=== PATIENT | female | born 1960 | race African-American/Black ===

== ENCOUNTER 2018-09-19 06:05 | Inpatient (IN) ==
[2018-09-19] MEDS ORDERED: Labetalol HCl Inj 100 MG/20 ML Vial IV.PUSH ONE (06:40)
[2018-09-19] MEDS ORDERED: Morphine Inj 4 MG/ML Vial IV.PUSH ONE (06:40)
--- NOTE | 2018-09-19 06:40 | ED ---
HPI General Chief complaint: Extremity Problem,Nontraumatic Stated complaint: Leg pain Time Seen by Provider: 09/19/18 06:17 Source: patient Mode of arrival: ambulatory Limitations: no limitations History of Present Illness HPI narrative: The patient is a 58 year old female who presents to the [facility] emergency department with a history of pain in her back that radiates down her legs that is recently been getting worse. She reports that she went to a chiropractor on Wednesday and had a manipulation done. She reports that the pain that radiates down into the right leg improved, however the pain in the left leg has gradually worsened. She reports that the pain radiates from the left buttock area down to the left foot. She reports that it seems to be in the back of her leg. She denies having any dysuria, urinary frequency, or urinary urgency, however she reports that she has had difficulty getting to the bathroom fast enough and has been incontinent. She reports that she will has also noticed weakness in the left foot with dorsiflexing. The patient arrives out in triage with a blood pressure of 270/136. The patient reports that she does have a history of high blood pressure, however she has not been on any medication for for the last 2 years. She denies having any headache or neck pain. She denies having any chest pain, chest pressure, or shortness of breath. On review of systems otherwise, the patient denies having any known recent fevers, cough, congestion, neck pain, abdominal pain, vomiting, diarrhea , incontinence of bowel, numbness or tingling to her extremities or saddle region, unexplained weight loss, history of IV drug use, weakness in her arms or right lower extremity. The patient denies having any recent problems with facial droop, difficulty with word finding ability, vision changes, or vertigo. Related Data Home Medications Medication Instructions Recorded Confirmed No Known Home Medications 09/19/18 09/19/18 Allergies Allergy/AdvReac Type Severity Reaction Status Date / Time No Known Allergies Allergy Verified 09/19/18 06:07 Review of Systems ROS: all other systems reviewed are negative [facility] Medical History Medical History HTN (hypertension) (Acute) Surgical History Surgical History No history of previous surgery (Acute) Social History Social History Substance History: No History of Abuse Smoking Status: Never smoker How Often Do You Have a Drink Containing Alcohol: Monthly or less Recent Travel in [facility] within the Last 8 Weeks: No Recent Out of Country Travel within the Last 8 Weeks: No Immunization History Tetanus Immunization: Unsure Exam Const General: cooperative, no acute distress and well developed Nutritional Appearance: well nourished Orientation: alert, awake and oriented x3 HENMT Head: normocephalic and atraumatic Nose: no nasal discharge and no epistaxis Mouth: moist mucous membranes Throat: posterior oropharynx normal and uvula midline Eyes Sclera: normal sclerae Pupils: PERRL Neck Neck: no meningeal signs, trachea midline and no JVD Resp Effort & Inspection: no use of accessory muscles Auscultation: clear to auscultation bilaterally Cardio Rate: regular rate Rhythm: regular rhythm Heart Sounds: no murmurs GI Inspection: non-distended Palpation: soft, no hepatosplenomegaly, no guarding, not rigid and nontender Auscultation: normal bowel sounds Back/Spine/Pelvis Back: no CVA tenderness Cervical Spine: No cervical spinal tenderness Thoracic/Lumbar Spine: No thoracic spinal tenderness, No lumbar spinal tenderness and No straight leg raise positive Pelvis: no buttock tenderness and no sciatic notch tenderness Skin General: dry skin (warm) Neuro General: alert, awake and oriented x3 Cranial Nerves: CN's II-XI intact bilaterally Speech: speech normal Motor: no movement abnormalities noted and strength abnormal (Weakness with dorsiflexion of the left foot is noted. Otherwise 5/5 strength in all 4 extremities.) Sensory Exam: no sensory deficits noted Extrem General: normal to inspection, no calf tenderness, no clubbing, no cyanosis and no edema Psych Mood: congruent mood Affect: normal affect Judgment: judgment good Course Initial Documented Vital Signs Temperature 98.5 F 09/19/18 06:07 Pulse Rate 90 09/19/18 06:07 Respiratory Rate 16 09/19/18 06:07 Blood Pressure 276/138 H 09/19/18 06:07 Pulse Oximetry 97 09/19/18 06:07 Last Documented Vital Signs Temperature 97.8 F 09/19/18 10:00 Pulse Rate 62 11/19/18 10:00 Respiratory Rate 20 09/19/18 10:00 Blood Pressure 180/120 H 09/19/18 10:00 Pulse Oximetry 96 09/19/18 10:00 Sign Out Sign Out Data: Patient Sign Out occurred on 09/19/18 at 07:41. Patient's care was discussed, and care was transferred from Vicky Roger MD to Calvin العرايق MD. Sign Out Comment: The patient's case was checked out to the oncoming emergency physician to disposition the patient based on the conclusion of her workup. The patient is also pending reevaluation of her blood pressure after labetalol administration and pain control for her back pain including morphine and Zofran. Last updated by Vicky Roger MD at 09/19/18 06:57 Post-Handoff Eval: Patient was initially evaluated by the previous provider and signed shift pending labs, imaging studies, reassessment, and disposition. See her note for further details. This is a 4-year-old female with chronic low back pain who presents for evaluation of worsening lower back pain with left lower extremity weakness and left foot drop that started yesterday. The patient was seen by chiropractor on Wednesday of last week and had an adjustment and reports that the pain on her right side improved, however the pain on her left lower extremity has worsened. On exam the patient has mild weakness to the left lower extremity in flexion and extension at the left hip and knee when compared to the right as well as foot drop with limited dorsiflexion. Sensation is intact. CT lumbar spine: CONCLUSION:1. No acute abnormality.2. Degenerative changes particularly at L3- L4 and L4-L5 with central canal stenosis and neural foraminal narrowing as detailed above. MR L spine: CONCLUSION: 1. Degenerative changes as detailed above. Right L4 and left L5 neural foraminal impingement as detailed above. Patient was made aware of the imaging findings. I told her that she may need surgery given her symptoms and findings. She prefers conservative management over surgery. Her blood pressure remains significantly elevated despite receiving 10 mg of IV labetalol. She will be given a dose of IV hydralazine. 9:25 AM: Case discussed with on-call neurosurgeon Dr. Dallas who was made aware that the patient will likely be admitted for uncontrolled blood pressure as well as pain control and left lower extremity weakness with MRI findings as above. He will see the patient in consultation. CT aorta: No acute abnormalities. Moderate atherosclerosis throughout. Patient was made aware of CTA findings. She was provided 10 mg of IV Decadron by me as well as hydralazine. Her blood pressure remains elevated. She will be admitted for further treatment and evaluation of uncontrolled hypertension, uncontrolled back pain, left foot drop with lumbar disc herniations and degenerative changes. Case discussed with hospitalist Dr. Pugh who will admit the patient to her service. Medical Decision Making MDM Narrative Medical decision making narrative: During the course of the patient's emergency department visit, the patient's history, examination, and differential diagnosis were reviewed with the patient. The patient was placed on a alarm security or surveillance monitor with oximetry and frequent blood pressure monitoring. The patient had IV access obtained and blood work sent for analysis. A diagnostic evaluation was started regarding the patient's low back pain that is radiating down into the left leg. The patient was initially provided morphine 4 mg IV for pain, Zofran 4 mg IV for nausea, labetalol 10 mg IV for hypertension. The patient's case was checked out to the oncoming emergency physician at the conclusion of my shift. The patient is pending laboratory studies and imaging studies as well as reevaluation. Medical Screen Exam Complete: Yes Emergency Medical Condition: Yes Lab Data Result diagrams: 09/19/18 06:50 09/19/18 06:50 Lab Results 09/19/18 09/19/18 09/19/18 Range/Units 06:50 06:50 06:50 WBC 4.6 (4.0-11.0) th/mm3 RBC 4.90 (4.00-5.30) mil/mm3 Hgb 14.5 (11.6-15.3) gm/dL Hct 43.3 (35.0-46.0) % MCV 88.2 (80.0-100.0) fL MCH 29.5 (27.0-34.0) pg MCHC 33.5 (32.0-36.0) % RDW 14.0 (11.6-17.2) % Plt Count 210 (150-450) th/mm3 MPV 10.6 (7.0-11.0) fL Neut % (Auto) 50.9 (16.0-70.0) % Lymph % (Auto) 38.9 (9.0-44.0) % [place] % (Auto) 7.8 (0.0-8.0) % Eos % (Auto) 1.6 (0.0-4.0) % Baso % (Auto) 0.8 (0.0-2.0) % Neut # (Auto) 2.4 (1.8-7.7) th/mm3 Lymph # (Auto) 1.8 (1.0-4.8) th/mm3 [place] # (Auto) 0.4 (0.0-0.9) th/mm3 Eos # (Auto) 0.1 (0.0-0.4) th/mm3 Baso # (Auto) 0.0 (0.0-0.2) th/mm3 WBC Differential . Differential Comment Auto diff final PT 10.2 (9.8-11.6) sec INR 1.0 Ratio APTT 27.0 (23.4-31.7) sec Sodium 141 (136-145) meq/L Potassium 3.2 L (3.5-5.1) meq/L Chloride 102 (98-107) meq/L Carbon Dioxide 31.1 (21.0-32.0) meq/L Anion Gap 8 (5-15) meq/L BUN 30 H (7-18) mg/dL Creatinine 1.33 H (0.50-1.00) mg/dL Estimated GFR 49 L (>89) mL/min Random Glucose 116 H (74-106) mg/dL Calcium 9.6 (8.5-10.1) mg/dL Total Bilirubin 0.3 (0.2-1.0) mg/dL AST 24 (15-37) U/L ALT 20 (10-53) U/L Alkaline Phosphatase 98 (45-117) U/L Total Creatine Kinase 207 H (26-192) U/L CK-MB (CK-2) 1.1 (0.5-3.6) ng/mL CK-MB (CK-2) % 0.5 (0.0-4.0) % Troponin I Less than 0.02 L (0.02-0.05) ng/mL Total Protein 9.3 H (6.4-8.2) g/dL Albumin 3.7 (3.4-5.0) g/dL Lipase 113 (73-393) U/L Imaging Data Radiologist's impression: Chest X-Ray 09/19/18 06:41 CONCLUSION: Negative examination. Lumbar Spine CT 09/19/18 06:41 CONCLUSION: 1. No acute abnormality. 2. Degenerative changes particularly at L3-L4 and L4-L5 with central canal stenosis and neural foraminal narrowing as detailed above. Head CT 09/19/18 06:45 CONCLUSION: 1. No acute intracranial abnormality. 2. Chronic small vessel ischemic change. 3. Chronic lacunar infarction involving left thalamus. . Thoracic Aorta CT 09/19/18 07:05 CONCLUSION: 1. No acute abnormality. In particular, no aortic aneurysm or dissection. Lumbar Spine MRI 09/19/18 07:06 CONCLUSION: 1. Degenerative changes as detailed above. Right L4 and left L5 neural foraminal impingement as detailed above. Discharge Plan Discharge Disposition Patient Disposition: 30 Still Patient Discharge Condition Condition: Stable Discharge Details Diagnosis: Hypertension, uncontrolled, Lumbar disc herniation, Foot drop, left Physicians Team ED Provider: Calvin العراقي Primary Care Provider: Primary Care Physici,Yeny Rxs /Orders / Referrals /Forms Prescriptions: No Action No Known Home Medications RF: 0 Status ED Status: With Doctor
--- NOTE | 2018-09-19 07:06 | XR ---
EXAM DATE: 09/19/2018 6:56 AM EST AGE/SEX: 58 years / Female INDICATIONS: Left hip and leg pain with numbness, no known injury. CLINICAL DATA: This is the patient's initial encounter. Patient reports that signs and symptoms have been present for 2 days and indicates a pain score of 7/10. MEDICAL/SURGICAL HISTORY: None. None. COMPARISON: No prior exams available for comparison. FINDINGS: A single AP view of the chest demonstrates the lungs to be symmetrically aerated without evidence of mass, infiltrate or effusion. The cardiomediastinal contours are unremarkable. Osseous structures a re intact. CONCLUSION: Negative examination. Electronically signed by: Raza Souza MD 09/19/2018 7:04 AM EST
[2018-09-19 07:10] LABS: Baso % (Auto) 0.8 % (0.0-2.0); Eos # (Auto) 0.1 th/mm3 (0.0-0.4); Eos % (Auto) 1.6 % (0.0-4.0); Hematocrit 43.3 % (35.0-46.0); Hemoglobin 14.5 gm/dL (11.6-15.3); Lymph # (Auto) 1.8 th/mm3 (1.0-4.8); Lymph % (Auto) 38.9 % (9.0-44.0); Mean Corpuscular HGB Conc 33.5 % (32.0-36.0); Mean Corpuscular Hemoglobin 29.5 pg (27.0-34.0); Mean Corpuscular Volume 88.2 fL (80.0-100.0); Mean Platelet Volume 10.6 fL (7.0-11.0); Mono # (Auto) 0.4 th/mm3 (0.0-0.9); Mono % (Auto) 7.8 % (0.0-8.0); Neut # (Auto) 2.4 th/mm3 (1.8-7.7); Neut % (Auto) 50.9 % (16.0-70.0); Platelet Count 210 th/mm3 (150-450); White Blood Count 4.6 th/mm3 (4.0-11.0)
--- NOTE | 2018-09-19 07:20 | CT ---
EXAM DATE: 09/19/2018 7:16 AM EST AGE/SEX: 58 years / Female INDICATIONS: Weakness, left leg pain. CLINICAL DATA: This is the patient's initial encounter. Patient reports that signs and symptoms have been present for 1 week and indicates a pain score of 2/10. MEDICAL/SURGICAL HISTORY: Hypertension. None. RADIATION DOSE: 56.35 CTDI (mGy) COMPARISON: No prior exams available for comparison. TECHNIQUE: CT of the head without contrast. Using automated exposure control and adjustment of the mA and/or kV according to patient size, radiation dose was kept as low as reasonably achievable to ob tain optimal diagnostic quality images. DICOM format image data is available electronically for revi ew and comparison. FINDINGS: Cerebrum: Small chronic lacunar infarction involving the left thalamus. Periventricular low attenuat ion change involving both cerebral hemispheres and The ventricles are normal for age. No evidence of midline shift, mass lesion, hemorrhage or acute infarction. No extraaxial fluid collections are see n. Posterior Fossa: The cerebellum and brainstem are intact. The 4th ventricle is midline. The cerebe llopontine angle is unremarkable. Extracranial: The visualized portion of the orbits is intact. Skull: The calvaria is intact. No evidence of skull fracture. CONCLUSION: 1. No acute intracranial abnormality. 2. Chronic small vessel ischemic change. 3. Chronic lacunar infarction involving left thalamus. . Electronically signed by: Raza Souza MD 09/19/2018 7:19 AM EST
[2018-09-19 07:22] LABS: Prothrombin Time 10.2 sec (9.8-11.6)
--- NOTE | 2018-09-19 07:30 | CT ---
EXAM DATE: 09/19/2018 7:20 AM EST AGE/SEX: 58 years / Female INDICATIONS: Weakness, left leg pain. CLINICAL DATA: This is the patient's initial encounter. Patient reports that signs and symptoms have been present for 1 week and indicates a pain score of 4/10. MEDICAL/SURGICAL HISTORY: Hypertension. None. RADIATION DOSE: 53.13 CTDI (mGy) ; Patient body habitus COMPARISON: No prior exams available for comparison. TECHNIQUE: Contiguous axial images were acquired with a multirow detector CT scanner without contras t. Multiplanar reconstructions in the sagittal and coronal plane were also performed. Using automate d exposure control and adjustment of the mA and/or kV according to patient size, radiation dose was k ept as low as reasonably achievable to obtain optimal diagnostic quality images. DICOM format image data is available electronically for review and comparison. FINDINGS: Vertebrae: Normal vertebral body height. Alignment: Normal. No subluxation. T12-L1: The thecal sac has a normal diameter. No evidence of disc bulge or protrusion. The neural foramina are patent bilaterally. L1-L2: The thecal sac has a normal diameter. No evidence of disc bulge or protrusion. The neural f oramina are patent bilaterally. L2-L3: The thecal sac has a normal diameter. No evidence of disc bulge or protrusion. The neural f oramina are patent bilaterally. L3-L4: Broad-based disc bulge. Moderate ligamentum flavum hypertrophy and mild bony hypertrophy of t he facets. This generates narrowing of the central canal and lateral recesses bilaterally. Neural for good show some narrowing but no overt impingement observed.. L4-L5: There is a broad-based disc bulge with right posterior lateral component that effaces the rig ht lateral recess. Prominent bony hypertrophy of the facet joints. This combination generates signifi cant narrowing of the central canal as well as the lateral recesses bilaterally. Encroachment upon th e left neural foramen as well. L5-S1: Mild broad-based disc bulge. Central canal remains patent. Mild bony hypertrophy of the facet s. Narrowing of the neural foramina bilaterally. CONCLUSION: 1. No acute abnormality. 2. Degenerative changes particularly at L3-L4 and L4-L5 with central canal stenosis and neural sebastien inal narrowing as detailed above. Electronically signed by: Raza Souza MD 09/19/2018 7:28 AM EST
[2018-09-19 07:38] LABS: Alkaline Phosphatase 98 U/L (45-117); Creatine Kinase 207 U/L (26-192); Total Protein 9.3 g/dL (6.4-8.2)
[2018-09-19 07:42] LABS: Alanine Aminotransferase 20 U/L (10-53); Albumin 3.7 g/dL (3.4-5.0); Anion Gap 8 meq/L (5-15); Aspartate Aminotransferase 24 U/L (15-37); Blood Urea Nitrogen 30 mg/dL (7-18); Calcium 9.6 mg/dL (8.5-10.1); Carbon Dioxide 31.1 meq/L (21.0-32.0); Chloride 102 meq/L (98-107); Glomerular Filtration Rate 49 mL/min (>89); Glucose,Random 116 mg/dL (74-106); Lipase 113 U/L (73-393); Potassium 3.2 meq/L (3.5-5.1); Sodium 141 meq/L (136-145)
[2018-09-19 07:50] LABS: CKMB Percent 0.5 % (0.0-4.0); Creatine Kinase MB 1.1 ng/mL (0.5-3.6)
--- NOTE | 2018-09-19 08:58 | MR ---
EXAM DATE: 09/19/2018 8:44 AM EST AGE/SEX: 58 years / Female INDICATIONS: . Bilateral leg pain. Pain worse on left side. CLINICAL DATA: This is the patient's initial encounter. Patient reports that signs and symptoms have been present for 2 days and indicates a pain score of 4/10. MEDICAL/SURGICAL HISTORY: Hypertension. None. [place] [facility] [facility] [place] 09/19/2018.. . TECHNIQUE: Multiplanar, multisequence MRI of the lumbar spine was performed without contrast. Patie nt was scanned in a sitting position; neutral, flexion, and extension scans were performed in the sa gittal plane. FINDINGS: Vertebra: Homogeneous signal. Normal alignment. Conus: Normal level and configuration. T12-L1: The thecal sac has a normal diameter. No evidence of disc bulge or protrusion. The neural foramina are patent bilaterally. L1-L2: The thecal sac has a normal diameter. No evidence of disc bulge or protrusion. The neural foramina are patent bilaterally. L2-L3: The thecal sac has a normal diameter. No evidence of disc bulge or protrusion. The neural foramina are patent bilaterally. L3-L4: Mild disc desiccation without disc space narrowing. Mild broad-based disc bulge. Moderate li gamentum flavum hypertrophy and mild bony hypertrophy of the facets. Central canal and lateral recess es remain patent. The bilateral posterior lateral components of the disc bulge just touches the infer ior margins of the exiting L3 nerve roots within their respective neural foramen. L4-L5: Disc desiccation without disc space narrowing. Moderate broad-based disc bulge with right po sterior lateral component effaces the right lateral recess and right neural foramen causing neural fo raminal impingement. There is narrowing of the left neural foramen without overt impingement. Promine nt bony hypertrophy and moderate ligamentum flavum hypertrophy of the facet joints generates narrowin g of the central canal. Anterior to posterior dimension of the thecal space in the midline measures 7 mm. L5-S1: Disc desiccation without significant disc space narrowing. A left posterior lateral disc pro trusion totally effaces the left lateral recess and extends into the neural foramen abutting the exit ing L5 nerve root. Mild ligamentum flavum hypertrophy of the facet joints. Mild narrowing of the cent ral canal which measures 7 mm in the midline. Right lateral recess and right neural foramen are paten t. CONCLUSION: 1. Degenerative changes as detailed above. Right L4 and left L5 neural foraminal impingement as deta iled above. Electronically signed by: Raza Souza MD 09/19/2018 8:57 AM EST
[2018-09-19] MEDS ORDERED: hydrALAZINE HCl Inj 20 MG/ML Vial IV.PUSH ONE (09:09)
[2018-09-19] MEDS ORDERED: Dexamethasone Inj 20 MG/5 ML Vial IV.PUSH ONE (09:29)
--- NOTE | 2018-09-19 10:24 | CT ---
EXAM DATE: 09/19/2018 10:14 AM EST AGE/SEX: 58 years / Female INDICATIONS: Weakness, left leg pain. CLINICAL DATA: This is the patient's initial encounter. Patient reports that signs and symptoms have been present for 1 week and indicates a pain score of 4/10. MEDICAL/SURGICAL HISTORY: Hypertension. None. RADIATION DOSE: 10.01 CTDI (mGy) COMPARISON: No prior exams available for comparison. TECHNIQUE: Volumetric scanning was performed using a multi-row detector CT scanner during bolus infu noah of 95 ml Omnipaque 350 (iohexol) nonionic water-soluble contrast as a single exam dose. The da ta was post processed with a variety of visualization algorithms including full volume maximum intens ity projection, multi-planar sliding thin slab reformation, curved planar reformation, and surface re ndering techniques. Using automated exposure control and adjustment of the mA and/or kV according to patient size, radiation dose was kept as low as reasonably achievable to obtain optimal diagnostic q uality images. DICOM format image data is available electronically for review and comparison. FINDINGS: THORACIC/ABDOMINAL AORTA: Scattered calcified atheromatous plaque throughout the aorta and inflow ves sels. No stenosis. No dissection or aneurysm. The arch vessels, celiac, SMA, and ITA are patent. Athe rosclerotic plaque involving the origin of the right renal artery generates a 40% stenosis. Left roger l artery is patent. HEART AND MEDIASTINUM: The heart is normal in size. No pericardial effusion. Tiny hiatal hernia noted . No mass or adenopathy. Pulmonary arteries are normal in caliber. LUNG PARENCHYMA: No infiltrate, effusion, or mass. Mild atelectasis within the right base. OTHER STRUCTURES: Abdominal viscera is unremarkable. Scattered diverticula throughout the colon. Smal l umbilical hernia containing fat. CONCLUSION: 1. No acute abnormality. In particular, no aortic aneurysm or dissection. Electronically signed by: Raza Souza MD 09/19/2018 10:23 AM EST
[2018-09-19] MEDS ORDERED: Bisacodyl 10 MG Supp RECTAL PRN (10:57)
[2018-09-19] MEDS ORDERED: Labetalol HCl Inj 100 MG/20 ML Vial IV.PUSH PRN (10:57)
[2018-09-19] MEDS ORDERED: hydrALAZINE HCl Inj 20 MG/ML Vial IV.PUSH PRN (10:57)
[2018-09-19] MEDS ORDERED: Naloxone Inj 0.4 MG/ML Vial IV.PUSH PRN (10:57)
[2018-09-19] MEDS ORDERED: Acetaminophen 325 MG Tablet PO PRN (10:57)
[2018-09-19] MEDS ORDERED: Morphine Inj 4 MG/ML Vial IV.PUSH PRN (10:57)
[2018-09-19] MEDS ORDERED: Lisinopril 10 MG Tablet PO SCH (11:15)
[2018-09-19] MEDS: Enoxaparin Inj 40 MG/0.4 ML Syringe SQ SCH (11:33)
--- NOTE | 2018-09-19 15:04 | P.HPIM ---
History of Present Illness Primary Care Physician: No Primary Care Physician Chief Complaint: difficulty ambulating History of Present Illness: 58-year-old female with a history of hypertension presents to the emergency room with worsening pain of the left lower leg and difficulty with ambulating. Apparently for the past week she has had pain that radiating down from her left hip to her foot and went to a chiropractor last Radha had manipulation done. She also noted that she has difficulty dorsiflexing her left foot compared to the right. She denies any associated back pain nor any recent trauma or injury to the back or the left leg. She denies any urinary or bowel incontinence. She reports she does have a history of hypertension however has not been on any antihypertensives at this point. No complaints of headaches, visual changes, difficulty swallowing nor any difficulty with her speech. She denies any significant numbness over the left lower extremities. Patient was noted with severe uncontrolled blood pressure 270/136 at triage. Despite IV hydralazine and labetalol given in the emergency room she continues to have elevated uncontrolled blood pressure. Diagnosis (1) Lumbar stenosis: (2) Hypertension, uncontrolled: Inpatient Certification Inpatient Certification: I certify that the inpatient services were ordered in accordance with Medicare regulations governing the order. This includes certification that hospital inpatient services are reasonable and necessary and in the case of services not specified as inpatient-only under 42 CFR 419.22(n), that they are appropriately provided as inpatient services in accordance to with the 2-midnight benchmark under 43 CFR 412.3(e) Estimated Total Length of Stay (Days): 3 Plans for Post Hospital Care: Home Review of Systems Review of Systems: all other systems reviewed are negative [facility] Medical History Medical History HTN (hypertension) (Acute) Surgical History Surgical History No history of previous surgery (Acute) Social History Social History Substance History: No History of Abuse Smoking Status: Never smoker How Often Do You Have a Drink Containing Alcohol: Monthly or less Recent Travel in [facility] within the Last 8 Weeks: No Recent Out of Country Travel within the Last 8 Weeks: No Immunization History Tetanus Immunization: Unsure Medications and Allergies Allergies Allergy/AdvReac Type Severity Reaction Status Date / Time No Known Allergies Allergy Verified 09/19/18 06:07 Home Medications Medication Instructions Recorded Confirmed Type No Known Home Medications 09/19/18 09/19/18 History Active Medications: Active Medications Acetaminophen (Tylenol) 650 mg PO Q4H PRN PRN Reason: Temp > 100.4 Hydrocodone Bitart/Acetaminophen ([place] 5/325) 1 tab PO Q4H PRN PRN Reason: PAIN SCALE 3 TO 5 Hydrocodone Bitart/Acetaminophen ([place] 7.5/325) 1 tab PO Q4H PRN PRN Reason: PAIN SCALE 6 TO 10 Al Hydroxide/Mg Hydroxide (Milk Of Magnesia Liq) 30 ml PO Q12H PRN PRN Reason: Mild Constipation Bisacodyl (Dulcolax Supp) 10 mg RECTAL DAILY PRN PRN Reason: SEVERE CONSITIPATION Clonidine HCl (Catapres) 0.1 mg PO Q6H PRN PRN Reason: SEE LABEL COMMENTS Last Admin: 09/19/18 12:45 Dose: 0.1 mg Enalaprilat (Vasotec Inj) 1.25 mg IV.PUSH Q6H PRN PRN Reason: SEE LABEL COMMENTS Enoxaparin Sodium (Lovenox Inj) 40 mg SQ Q24H [facility] Last Admin: 09/19/18 11:33 Dose: 40 mg Hydralazine HCl (Apresoline Inj) 10 mg IV.PUSH Q6H PRN PRN Reason: SEE LABEL COMMENTS Labetalol HCl (Trandate Inj) 10 mg IV.PUSH Q4H PRN PRN Reason: SEE LABEL COMMENTS Lactulose (Lactulose Liq) 30 ml PO DAILY PRN PRN Reason: SEVERE CONSITIPATION Lisinopril (Prinivil) 10 mg PO DAILY [facility] Last Admin: 09/19/18 11:32 Dose: 10 mg Morphine Sulfate (Morphine Inj) 4 mg IV.PUSH Q3H PRN PRN Reason: BREAKTHROUGH PAIN Naloxone HCl (Narcan Inj) 0.4 mg IV.PUSH UNSCH PRN PRN Reason: SEE LABEL COMMENTS Nifedipine (Procardia Xl) 60 mg PO DAILY [facility] Last Admin: 09/19/18 11:32 Dose: 60 mg Ondansetron HCl (Zofran Inj) 4 mg IV.PUSH Q6H PRN PRN Reason: NAUSEA OR VOMITING Senna/Docusate Sodium (Billie-Colace) 1 tab PO BID MICHELLE Sennosides (Senokot) 17.2 mg PO Q12H PRN PRN Reason: Moderate Constipation Sodium Chloride (Ns Flush) 2 ml IV.FLUSH PRN PRN PRN Reason: FLUSH AFTER USING IV ACCESS Physical Exam Vital signs: Last Vital Signs Temp 97.8 F 09/19/18 13:50 Pulse 65 09/19/18 13:50 Resp 15 09/19/18 13:50 BP 163/74 H 09/19/18 13:50 Pulse Ox 99 09/19/18 13:50 Intake & Output 09/17/18 09/18/18 09/19/18 09/20/18 06:59 06:59 06:59 06:59 Weight 149.685 kg Narrative: GENERAL: Well-nourished well-developed obese female no acute distress SKIN: Warm and dry. HEAD: Atraumatic. Normocephalic. EYES: Pupils equal and round. No scleral icterus. No injection or drainage. ENT: No nasal bleeding or discharge. Mucous membranes pink and moist. NECK: Trachea midline. No JVD. CARDIOVASCULAR: Regular rate and rhythm. RESPIRATORY: No accessory muscle use. Clear to auscultation. Breath sounds equal bilaterally. GASTROINTESTINAL: Abdomen soft, non-tender, nondistended. Hepatic and splenic margins not palpable. Normoactive bowel sounds MUSCULOSKELETAL: Extremities without clubbing, cyanosis, or edema. No obvious deformities. NEUROLOGICAL: Awake and alert to person place time and situation. No obvious cranial nerve deficits. Motor grossly within normal limits. Difficulty with complete dorsiflexion of the left foot and ankle, motor strength slightly weak of the left lower extremities compared to the right lower extremities. Normal speech. PSYCHIATRIC: Appropriate mood and affect; insight and judgment normal. Results Labs CBC & Chem 7: 09/19/18 06:50 09/19/18 06:50 Imaging Impressions Chest X-Ray 09/19/18 06:41 CONCLUSION: Negative examination. Lumbar Spine CT 09/19/18 06:41 CONCLUSION: 1. No acute abnormality. 2. Degenerative changes particularly at L3-L4 and L4-L5 with central canal stenosis and neural foraminal narrowing as detailed above. Head CT 09/19/18 06:45 CONCLUSION: 1. No acute intracranial abnormality. 2. Chronic small vessel ischemic change. 3. Chronic lacunar infarction involving left thalamus. . Thoracic Aorta CT 09/19/18 07:05 CONCLUSION: 1. No acute abnormality. In particular, no aortic aneurysm or dissection. Lumbar Spine MRI 09/19/18 07:06 CONCLUSION: 1. Degenerative changes as detailed above. Right L4 and left L5 neural foraminal impingement as detailed above. Caprini VTE Risk Assessment Caprini Risk Assessment Model: Point Value = 1 Point Value = 2 Point Value = 3 Point Value = 5 Age 41-60 Minor surgery BMI > 25 kg/m2 Swollen legs Varicose veins or History of unexplained or recurrent spontaneous Oral contraceptives or hormone replacement Sepsis (< 1 month) Serious lung disease, including pneumonia (< 1 month) Abnormal pulmonary function Acute myocardial infarction Congestive heart failure (< 1 month) History of inflammatory bowel disease Medical patient at bed rest Age 61-74 Arthroscopic surgery Major open surgery (> 45 min) Laparoscopic surgery (> 45 min) Malignancy Confined to bed (> 72 hours) Immobilizing plaster cast Central venous access Age >= 75 History of VTE Family history of VTE Factor V Leiden Prothrombin [id number] Lupus anticoagulant Anticardiolipin antibodies Elevated serum homocysteine Heparin-induced thrombocytopenia Other congenital or acquired thrombophilia Stroke (< 1 month) Elective arthroplasty Hip, pelvis, or leg fracture Acute spinal cord injury (< 1 month) Prophylaxis Regimen: Total Risk Factor Score Risk Level Prophylaxis Regimen 0-1 Low Early ambulation 2 Moderate Order ONE of the following: *Sequential Compression Device (SCD) *Heparin 5000 units SQ BID 3-4 Higher Order ONE of the following medications: *Heparin 5000 units SQ TID *Enoxaparin/Lovenox 40 mg SQ daily (WT < 150 kg, CrCl > 30 mL/min) *Enoxaparin/Lovenox 30 mg SQ daily (WT < 150 kg, CrCl > 10-29 mL/min) *Enoxaparin/Lovenox 30 mg SQ BID (WT < 150 kg, CrCl > 30 mL/min) AND/OR *Sequential Compression Device (SCD) 5 or more Highest Order ONE of the following medications: *Heparin 5000 units SQ TID (Preferred with Epidurals) *Enoxaparin/Lovenox 40 mg SQ daily (WT < 150 kg, CrCl > 30 mL/min) *Enoxaparin/Lovenox 30 mg SQ daily (WT < 150 kg, CrCl > 10-29 mL/min) *Enoxaparin/Lovenox 30 mg SQ BID (WT < 150 kg, CrCl > 30 mL/min) AND *Sequential Compression Device (SCD) Assessment and Plan (1) Lumbar stenosis: Code(s): M48.061 - Spinal stenosis, lumbar region without neurogenic claudication Status: Acute (2) Hypertension, uncontrolled: Code(s): I10 - Essential (primary) hypertension Status: Acute Plan 58-year-old female presents with left lower leg pain and weakness Left L5 neural foraminal impingement with lumbar stenosis-dose of Solu-Medrol to be given, pain control, physical therapy, obtain a neurosurgical evaluation with Dr. Dallas for further recommendations. Hypertensive urgency, uncontrolled hypertension-patient given IV labetalol and IV hydralazine in the emergency room with continued uncontrolled blood pressure , will start p.o. Procardia 60 mg XL, and lisinopril IV Vasotec, hydralazine and labetalol as needed will be given for better control of blood pressure Hypokalemiareplete Suspect chronic kidney disease stage III may be due to history of uncontrolled blood pressuremonitor creatinine and avoid nephrotoxins. DVT prophylaxisLovenox.
[2018-09-19] MEDS: Lisinopril 20 MG Tablet PO SCH (16:08)
--- NOTE | 2018-09-19 18:22 | P.CONNS ---
History of Present Illness Service: Neurosurgery Consult date: 09/19/18 Requesting Physician: Lakisha Pugh Reason for Consult: Lumbar disc protrusion Primary Care Provider: No Primary Care Physician Chief Complaint: difficulty ambulating History of Present Illness: 58-year-old obese -[place] female who presents to the emergency room with complaints of worsening back pain and left leg pain rating down the posterior thigh and calf. She relates that she is noticed weakness in her legs for the past 2 months although more recently she also started noticing her left drop. She is undergone chiropractic treatments and relates the right leg symptoms improved but the left leg symptoms did not. She denies any numbness in the perineal or perianal area or the legs but relates that at times she cannot make it to the bathroom on time because the pain in the leg with increased activity but no franchesca incontinence. MRI scan lumbar spine reviewed shows L4-5 disc protrusion eccentric to the right side with facet arthropathy overall mild to moderate spinal stenosis and there is also a left L5-S1 disc protrusion with facet hypertrophy with mild to moderate spinal stenosis. She is also very hypertensive with unregulated hypertension which is being controlled by the medical service and complains of some dizziness related to the side effects of the medication she is on. She has related to the emergency room physician as well as myself that she does not want any surgical intervention at this time. Review of Systems All other systems reviewed negative except as stated in HPI PMFSH - History History Provided By: Patient - Medical History Medical History: Medical History (Last Reviewed 09/19/18 @ 18:19 by Xiang Dallas MD) HTN (hypertension) - Surgical History Surgical History: Surgical History (Last Reviewed 09/19/18 @ 18:19 by Xiang Dallas MD) No history of previous surgery - Family History Family History: Family History (Last Reviewed 09/19/18 @ 18:19 by Xiang Dallas MD) Mother Hypertension Father Hypertension - Tobacco History Smoking Status: Never smoker - Alcohol History How Often Do You Have a Drink Containing Alcohol: Monthly or less - Substance Use History Substance History: No History of Abuse - Travel History Recent Travel in the [place] Within the Last 8 Weeks: No Recent Travel Out of the Country Within the Last 8 Weeks: No - Immunization History Tetanus Immunization: Unsure Medications and Allergies Active Medications: Active Medications Acetaminophen (Tylenol) 650 mg PO Q4H PRN PRN Reason: Temp > 100.4 Hydrocodone Bitart/Acetaminophen ([place] 5/325) 1 tab PO Q4H PRN PRN Reason: PAIN SCALE 3 TO 5 Hydrocodone Bitart/Acetaminophen ([place] 7.5/325) 1 tab PO Q4H PRN PRN Reason: PAIN SCALE 6 TO 10 Last Admin: 09/19/18 16:01 Dose: 1 tab Al Hydroxide/Mg Hydroxide (Milk Of Magnesia Liq) 30 ml PO Q12H PRN PRN Reason: Mild Constipation Bisacodyl (Dulcolax Supp) 10 mg RECTAL DAILY PRN PRN Reason: SEVERE CONSITIPATION Clonidine HCl (Catapres) 0.1 mg PO Q6H PRN PRN Reason: SEE LABEL COMMENTS Last Admin: 09/19/18 12:45 Dose: 0.1 mg Enalaprilat (Vasotec Inj) 1.25 mg IV.PUSH Q6H PRN PRN Reason: SEE LABEL COMMENTS Enoxaparin Sodium (Lovenox Inj) 40 mg SQ Q24H [facility] Last Admin: 09/19/18 11:33 Dose: 40 mg Hydralazine HCl (Apresoline Inj) 10 mg IV.PUSH Q6H PRN PRN Reason: SEE LABEL COMMENTS Labetalol HCl (Trandate Inj) 10 mg IV.PUSH Q4H PRN PRN Reason: SEE LABEL COMMENTS Lactulose (Lactulose Liq) 30 ml PO DAILY PRN PRN Reason: SEVERE CONSITIPATION Lisinopril (Prinivil) 20 mg PO DAILY [facility] Last Admin: 09/19/18 16:08 Dose: 20 mg Morphine Sulfate (Morphine Inj) 4 mg IV.PUSH Q3H PRN PRN Reason: BREAKTHROUGH PAIN Last Admin: 09/19/18 16:01 Dose: 4 mg Naloxone HCl (Narcan Inj) 0.4 mg IV.PUSH UNSCH PRN PRN Reason: SEE LABEL COMMENTS Nifedipine (Procardia Xl) 60 mg PO DAILY [facility] Last Admin: 09/19/18 11:32 Dose: 60 mg Ondansetron HCl (Zofran Inj) 4 mg IV.PUSH Q6H PRN PRN Reason: NAUSEA OR VOMITING Senna/Docusate Sodium (Billie-Colace) 1 tab PO BID [facility] Sennosides (Senokot) 17.2 mg PO Q12H PRN PRN Reason: Moderate Constipation Sodium Chloride (Ns Flush) 2 ml IV.FLUSH PRN PRN PRN Reason: FLUSH AFTER USING IV ACCESS Allergies Allergy/AdvReac Type Severity Reaction Status Date / Time No Known Allergies Allergy Verified 09/19/18 06:07 Home Medications Medication Instructions Recorded Confirmed Type No Known Home Medications 09/19/18 09/19/18 History Exam Vital signs: Vital Signs 09/19/18 06:07 09/19/18 06:30 09/19/18 07:00 Temperature 98.5 F Pulse Rate 90 90 Respiratory Rate 16 18 18 Blood Pressure 276/138 H 270/136 H Pulse Oximetry 97 99 09/19/18 07:49 09/19/18 08:07 09/19/18 08:48 Temperature 97.9 F 98 F Pulse Rate 63 63 66 Respiratory Rate 18 19 17 Blood Pressure 130/118 H 130/118 H 237/100 H Pulse Oximetry 95 96 97 09/19/18 10:00 09/19/18 10:58 09/19/18 12:25 Temperature 97.8 F 97.8 F 97.8 F Pulse Rate 62 77 73 Respiratory Rate 20 16 17 Blood Pressure 180/120 H 194/100 H 190/93 H Pulse Oximetry 96 98 09/19/18 13:50 09/19/18 16:00 09/19/18 16:49 Temperature 97.8 F 98.2 F Pulse Rate 65 86 63 Respiratory Rate 15 16 Blood Pressure 163/74 H 197/111 H Pulse Oximetry 99 99 09/19/18 17:27 09/19/18 17:45 Temperature Pulse Rate 71 Respiratory Rate Blood Pressure 160/92 H Pulse Oximetry Intake & Output 09/18/18 09/19/18 09/19/18 18:59 06:59 18:59 Intake Total 480 / 480 Balance 480 / 480 Weight 149.685 kg Intake: Oral 480 / 480 Other: # Voids 1 - Constitutional no acute distress - Routine HEENT Exam Head: Present: normocephalic, atraumatic Eye: Present: EOMI, PERRL ENT: Present: mucous membranes moist, oropharynx clear, external ear normal - Routine Neck Exam Present: supple, full ROM - Routine Respiratory Exam Present: CTA bilaterally - Routine Cardiovascular Exam Present: RRR, S1, S2 - Routine Abdominal Exam Present: soft, normoactive bowel sounds - Routine Extremities Exam Present: full ROM - Routine Skin Exam Present: intact - Routine Neurological Exam Present: oriented X3, CN II-XII intact, sensory deficit (Relates normal sensation bilateral L4, L5 and S1 dermatomes to light touch), motor deficit ( Left dorsiflexion EHL 3/5 the rest are 5/5), moving all extremities, hearing grossly intact, normal speech Results - Laboratory Findings CBC and BMP: 09/19/18 06:50 09/19/18 06:50 Abnormal lab findings: Abnormal Labs 09/19/18 06:50 Potassium 3.2 L BUN 30 H Creatinine 1.33 H Estimated GFR 49 L Random Glucose 116 H Total Creatine Kinase 207 H Troponin I Less than 0.02 L Total Protein 9.3 H - Diagnostic Findings Additional findings: Impressions Chest X-Ray 09/19/18 06:41 CONCLUSION: Negative examination. Lumbar Spine CT 09/19/18 06:41 CONCLUSION: 1. No acute abnormality. 2. Degenerative changes particularly at L3-L4 and L4-L5 with central canal stenosis and neural foraminal narrowing as detailed above. Head CT 09/19/18 06:45 CONCLUSION: 1. No acute intracranial abnormality. 2. Chronic small vessel ischemic change. 3. Chronic lacunar infarction involving left thalamus. . Thoracic Aorta CT 09/19/18 07:05 CONCLUSION: 1. No acute abnormality. In particular, no aortic aneurysm or dissection. Lumbar Spine MRI 09/19/18 07:06 CONCLUSION: 1. Degenerative changes as detailed above. Right L4 and left L5 neural foraminal impingement as detailed above. Assessment and Plan - Assessment (1) Lumbar stenosis Code(s): M48.061 - Spinal stenosis, lumbar region without neurogenic claudication Status: Chronic (2) Lumbar disc herniation Code(s): M51.26 - Other intervertebral disc displacement, lumbar region Status : Chronic (3) Foot drop, left Code(s): M21.372 - Foot drop, left foot Status: Acute - Plan 58-year-old obese female with low back pain and left L5 radiculopathy with associated foot drop from a L5-S1 disc protrusion eccentric left side with associated facet hypertrophy. She also has L4-5 disc protrusion with facet hypertrophy eccentric to the right side but it appears that the L5-S1 level is some more symptomatic at this point. Discussed treatment options including left L5-S1 microdiscectomy and the patient again does not want any surgical intervention fully understanding that that she may have permanent foot drop which may be irreversible even with subsequent surgery. She wants to try medical pain management and physical therapy and also is not interested in any interventional pain management/epidural steroid injections. Accordingly at this point neurosurgery service will sign off.
[2018-09-19] MEDS ORDERED: MethylPREDNISolone Sod Succinate Inj 40 MG/ML Vial IV.PUSH ONE ×2 (18:39→22:08)
[2018-09-19] MEDS: Senna/Docusate Sodium 8.6/50 MG Tablet PO SCH (20:58)
[2018-09-20 07:58] LABS: Calcium 9.9 mg/dL (8.5-10.1); Carbon Dioxide 30.5 meq/L (21.0-32.0); Potassium 3.3 meq/L (3.5-5.1)
[2018-09-20] MEDS: Senna/Docusate Sodium 8.6/50 MG Tablet PO SCH ×2 (08:21→20:41)
[2018-09-20] MEDS: Lisinopril 20 MG Tablet PO SCH (08:21)
[2018-09-20] MEDS: Enoxaparin Inj 40 MG/0.4 ML Syringe SQ SCH (11:19)
--- NOTE | 2018-09-20 12:17 | P.PN ---
Subjective Interval history: Follow-up hypertensive urgency/L5 radiculopathy September 20, 2018-patient seen and examined, still complains of left lower extremity pain with some difficulty putting weight on it. He was seen by neurosurgery yesterday however declined any surgical intervention at this time. Also reports some back pain. BP still labile however denies any headache, visual change, shortness of breath or chest pain. Patient has not seen a PCP times 6 years now Physical Exam Vital signs: Vital Signs 09/19/18 12:25 09/19/18 13:50 09/19/18 16:00 Temperature 97.8 F 97.8 F 98.2 F Pulse Rate 73 65 86 Respiratory Rate 17 15 16 Blood Pressure 190/93 H 163/74 H 197/111 H Pulse Oximetry 99 99 09/19/18 16:49 09/19/18 17:27 09/19/18 17:45 Temperature Pulse Rate 63 71 Respiratory Rate Blood Pressure 160/92 H Pulse Oximetry 09/19/18 19:00 09/19/18 20:00 09/19/18 21:00 Temperature 97.8 F Pulse Rate 58 L 60 78 Respiratory Rate 16 Blood Pressure 168/88 H Pulse Oximetry 97 09/19/18 22:00 09/19/18 23:00 09/19/18 23:26 Temperature 97.8 F Pulse Rate 58 L 53 L 53 L Respiratory Rate 16 Blood Pressure 169/94 H Pulse Oximetry 97 09/20/18 00:00 09/20/18 01:00 09/20/18 02:00 Temperature Pulse Rate 54 L 54 L 79 Respiratory Rate Blood Pressure Pulse Oximetry 09/20/18 03:00 09/20/18 04:00 09/20/18 05:00 Temperature 97.9 F Pulse Rate 54 L 55 L 52 L Respiratory Rate 16 Blood Pressure 169/93 H Pulse Oximetry 96 09/20/18 06:00 09/20/18 07:00 09/20/18 08:00 Temperature 98 F Pulse Rate 50 L 72 72 Respiratory Rate 16 Blood Pressure 194/102 H Pulse Oximetry 97 09/20/18 09:00 09/20/18 09:59 09/20/18 11:00 Temperature Pulse Rate 71 70 82 Respiratory Rate Blood Pressure Pulse Oximetry 09/20/18 11:58 Temperature 98 F Pulse Rate 82 Respiratory Rate 17 Blood Pressure 199/109 H Pulse Oximetry 96 Intake & Output 09/19/18 09/20/18 09/20/18 18:59 06:59 18:59 Intake Total 480 / 480 480 / 480 Output Total 400 / 400 Balance 480 / 480 80 / 80 Weight 140.3 kg Intake: Oral 480 / 480 480 / 480 Output: Urine 400 / 400 Other: # Voids 1 1 Date of Last Bowel Movement 09/19/18 # Bowel Movements 0 Narrative: GENERAL: Well-nourished well-developed obese female no acute distress SKIN: Warm and dry. HEAD: Atraumatic. Normocephalic. EYES: Pupils equal and round. No scleral icterus. No injection or drainage. ENT: No nasal bleeding or discharge. Mucous membranes pink and moist. NECK: Trachea midline. No JVD. CARDIOVASCULAR: Regular rate and rhythm. RESPIRATORY: No accessory muscle use. Clear to auscultation. Breath sounds equal bilaterally. GASTROINTESTINAL: Abdomen soft, non-tender, nondistended. Hepatic and splenic margins not palpable. Normoactive bowel sounds MUSCULOSKELETAL: Extremities without clubbing, cyanosis, or edema. No obvious deformities. NEUROLOGICAL: Awake and alert to person place time and situation. No obvious cranial nerve deficits. Motor grossly within normal limits. mild Difficulty with complete dorsiflexion of the left foot and ankle, motor strength slightly weak of the left lower extremities compared to the right lower extremities. Normal speech. PSYCHIATRIC: Appropriate mood and affect; insight and judgment normal. Results - Labs CBC & Chem 7: 09/19/18 06:50 09/20/18 06:45 Laboratory Results - last 24 hr 09/20/18 06:45 Sodium 140 Potassium 3.3 L Chloride 99 Carbon Dioxide 30.5 Anion Gap 11 BUN 39 H Creatinine 1.33 H Estimated GFR 49 L Random Glucose 137 H Calcium 9.9 Assessment and Plan - Assessment (1) Lumbar stenosis Code(s): M48.061 - Spinal stenosis, lumbar region without neurogenic claudication Status: Chronic (2) Hypertension, uncontrolled Code(s): I10 - Essential (primary) hypertension Status: Acute - Plan 58-year-old female with 1-Left L5 radiculopathy with associated foot drop from a L5-S1 disc protrusion eccentric left side with associated facet hypertrophy Patient seen by neurosurgery on September 19, 2018, however declined any surgical intervention Continue with PT, pain management accordingly 2-Hypertensive urgency Labile blood pressure Increase Procardia XL to 90 mg daily. Will give 30 mg p.o. x1 now Continue with lisinopril 20 mg daily Check 2D echo, lipid profile Vasotec as needed Obesity Check hemoglobin A1c, lipid profile Discussed about total lifestyle change modifications including weight management
--- NOTE | 2018-09-20 15:46 | ECHRPT ---
Indication: HYPERTENSIVE HEART DISEASE CONCLUSIONS Normal left ventricular size. Mild concentric left ventricular hypertrophy. The left ventricular systolic function is normal with an estimated ejection fraction in the range of 55-60%. Normal wall motion. The aortic valve is not well visualized. Possible minimal leaflet sclerosis. There is mild tricuspid valve regurgitation. The estimated pulmonary arterial pressure is 32 mmHg. BP: / HR: Rhythm: Sinus MEASUREMENTS (Male / Female) Normal Values Technical Quality:Fair 2D ECHO LV Diastolic Diameter PLAX 5.0 cm 4.2 - 5.9 / 3.9 - 5.3 cm LV Systolic Diameter PLAX 3.6 cm IVS Diastolic Thickness 1.3 cm 0.6 - 1.0 / 0.6 - 0.9 cm LVPW Diastolic Thickness 1.3 cm 0.6 - 1.0 / 0.6 - 0.9 cm LV Relative Wall Thickness 0.5 RV Internal Dim ED PLAX 4.4 cm LVOT Diameter 1.8 cm Aortic Root Diameter 3.2 cm LA Systolic Diameter LX 3.8 cm 3.0 - 4.0 / 2.7 - 3.8 cm M-MODE LV Diastolic Diameter MM 4.7 cm 4.2 - 5.9 / 3.9 - 5.3 cm DOPPLER AV Peak Velocity 193.0 cm/s AV Peak Gradient 14.9 mmHg LVOT Peak Velocity 112.0 cm/s LVOT Peak Gradient 5.0 mmHg AV Area Cont Eq pk 1.5 cm Mitral E Point Velocity 53.3 cm/s Mitral A Point Velocity 73.5 cm/s Mitral E to A Ratio 0.7 TR Peak Velocity 235.0 cm/s TR Peak Gradient 22.1 mmHg PV Peak Velocity 113.0 cm/s PV Peak Gradient 5.1 mmHg FINDINGS LEFT VENTRICLE Normal left ventricular size. Mild concentric left ventricular hypertrophy. The left ventricular systolic function is normal with an estimated ejection fraction in the range of 55-60%. Normal wall motion. RIGHT VENTRICLE Normal right ventricular size and systolic function. LEFT ATRIUM The left atrial size is normal. RIGHT ATRIUM The right atrial size is normal. ATRIAL SEPTUM Normal atrial septal thickness without atrial level shunting by limited color doppler interrogation. AORTA The aortic root and proximal ascending aorta are normal in size on limited imaging. MITRAL VALVE Trace mitral valve regurgitation. AORTIC VALVE The aortic valve is not well visualized. Possible minimal leaflet sclerosis. TRICUSPID VALVE There is mild tricuspid valve regurgitation. The estimated pulmonary arterial pressure is 32 mmHg. PULMONARY VALVE The pulmonary valve is not well visualized. VESSELS The inferior vena cava is normal in size. PERICARDIUM No pericardial effusion. Figueroa Laws MD (Electronically Signed) Final Date:20 September 2018 15:45
[2018-09-21 09:18] VITALS: RESP 17; O2SAT 99
[2018-09-21] MEDS: Senna/Docusate Sodium 8.6/50 MG Tablet PO SCH (09:19)
[2018-09-21] MEDS: Lisinopril 20 MG Tablet PO SCH (09:19)
[2018-09-21 09:46] LABS: Carbon Dioxide 31.5 meq/L (21.0-32.0); Chol/HDL Ratio 3.26 Ratio; HDL Cholesterol 51.5 mg/dL (40.0-60.0); Potassium 3.1 meq/L (3.5-5.1)
--- NOTE | 2018-09-21 10:06 | P.PN ---
Subjective Interval history: Follow-up hypertensive urgency/L5 radiculopathy -September 20, 2018-patient seen and examined, still complains of left lower extremity pain with some difficulty putting weight on it. He was seen by neurosurgery yesterday however declined any surgical intervention at this time. Also reports some back pain. BP still labile however denies any headache, visual change, shortness of breath or chest pain. Patient has not seen a PCP times 6 years now September 21, 2018-patient seen and examined,BP improved and patient denies any Headache. Patient is complaining of left lower extremity and back pain. However denies any bladder or bowel dysfunction. Physical Exam Vital signs: Vital Signs 09/20/18 11:00 09/20/18 11:58 09/20/18 12:00 Temperature 98 F Pulse Rate 82 82 80 Respiratory Rate 17 Blood Pressure 199/109 H Pulse Oximetry 96 09/20/18 13:00 09/20/18 14:00 09/20/18 15:00 Temperature Pulse Rate 62 53 L 59 L Respiratory Rate Blood Pressure 157/88 H Pulse Oximetry 09/20/18 16:00 09/20/18 17:00 09/20/18 17:40 Temperature 98.1 F Pulse Rate 72 58 L 57 L Respiratory Rate 18 Blood Pressure 157/92 H Pulse Oximetry 96 09/20/18 20:00 09/20/18 21:00 09/20/18 22:00 Temperature 97.9 F Pulse Rate 54 L 46 L 46 L Respiratory Rate 20 Blood Pressure 151/82 H Pulse Oximetry 99 09/20/18 22:40 09/20/18 23:00 09/21/18 00:00 Temperature 97.4 F L Pulse Rate 47 L 44 L Respiratory Rate 20 Blood Pressure 198/104 H 137/78 Pulse Oximetry 98 09/21/18 01:00 09/21/18 02:00 09/21/18 03:00 Temperature Pulse Rate 42 L 42 L 42 L Respiratory Rate Blood Pressure Pulse Oximetry 09/21/18 04:00 09/21/18 04:45 09/21/18 05:00 Temperature 98.4 F Pulse Rate 42 L 56 L 50 L Respiratory Rate 20 20 Blood Pressure 163/92 H Pulse Oximetry 95 09/21/18 05:46 09/21/18 05:54 09/21/18 09:11 Temperature Pulse Rate 85 57 L Respiratory Rate 17 Blood Pressure 127/80 159/89 H Pulse Oximetry 99 Intake & Output 09/20/18 09/21/18 09/21/18 18:59 06:59 18:59 Intake Total 720 / 720 440 / 440 Output Total 400 / 400 800 / 800 Balance 320 / 320 -360 / -360 Weight 138 kg Intake: Oral 720 / 720 440 / 440 Output: Urine 400 / 400 800 / 800 Other: # Voids 2 Date of Last Bowel Movement 09/19/18 09/19/18 Narrative: GENERAL: Well-nourished well-developed obese female no acute distress SKIN: Warm and dry. HEAD: Atraumatic. Normocephalic. EYES: Pupils equal and round. No scleral icterus. No injection or drainage. ENT: No nasal bleeding or discharge. Mucous membranes pink and moist. NECK: Trachea midline. No JVD. CARDIOVASCULAR: Regular rate and rhythm. RESPIRATORY: No accessory muscle use. Clear to auscultation. Breath sounds equal bilaterally. GASTROINTESTINAL: Abdomen soft, non-tender, nondistended. Hepatic and splenic margins not palpable. Normoactive bowel sounds MUSCULOSKELETAL: Extremities without clubbing, cyanosis, or edema. No obvious deformities. NEUROLOGICAL: Awake and alert to person place time and situation. No obvious cranial nerve deficits. Motor grossly within normal limits. mild Difficulty with complete dorsiflexion of the left foot and ankle, motor strength slightly weak of the left lower extremities compared to the right lower extremities. Normal speech. PSYCHIATRIC: Appropriate mood and affect; insight and judgment normal. Results - Labs CBC & Chem 7: 09/19/18 06:50 09/21/18 08:35 Laboratory Results - last 24 hr 09/21/18 08:35 Sodium 137 Potassium 3.1 L Chloride 100 Carbon Dioxide 31.5 Anion Gap 6 BUN 52 H Creatinine 1.69 H Estimated GFR 37 L Random Glucose 93 Calcium 9.0 D Triglycerides 110 Cholesterol 168 LDL Cholesterol, Calc 95 HDL Cholesterol 51.5 Cholesterol/HDL Ratio 3.26 - Procedures None Assessment and Plan - Assessment (1) Lumbar stenosis Code(s): M48.061 - Spinal stenosis, lumbar region without neurogenic claudication Status: Chronic (2) Hypertension, uncontrolled Code(s): I10 - Essential (primary) hypertension Status: Acute - Plan 58-year-old female with 1-Left L5 radiculopathy with associated foot drop from a L5-S1 disc protrusion eccentric left side with associated facet hypertrophy Patient seen by neurosurgery on September 19, 2018, however declined any surgical intervention Continue with PT, pain management accordingly 2-Hypertensive urgency-resolved Continue Procardia XL 90 mg daily. Continue with lisinopril 20 mg daily 2D echo with EF 50-55% Vasotec as needed Obesity hemoglobin A1c pending, LDL 95 Discussed about total lifestyle change modifications including weight management
--- NOTE | 2018-09-21 10:11 | P.DS ---
Date of admission: 09/19/18 11:06 Primary care physician: No Primary Care Physician Brief History from admission: 58-year-old female with a history of hypertension presents to the emergency room with worsening pain of the left lower leg and difficulty with ambulating. Apparently for the past week she has had pain that radiating down from her left hip to her foot and went to a chiropractor last Radha had manipulation done. She also noted that she has difficulty dorsiflexing her left foot compared to the right. She denies any associated back pain nor any recent trauma or injury to the back or the left leg. She denies any urinary or bowel incontinence. She reports she does have a history of hypertension however has not been on any antihypertensives at this point. No complaints of headaches, visual changes, difficulty swallowing nor any difficulty with her speech. She denies any significant numbness over the left lower extremities. Patient was noted with severe uncontrolled blood pressure 270/136 at triage. Despite IV hydralazine and labetalol given in the emergency room she continues to have elevated uncontrolled blood pressure. DS: Diagnosis - Discharge Diagnosis (1) Lumbar stenosis Status: Chronic (2) Hypertension, uncontrolled Status: Acute DS: Summary Hospital Course: While in hospital, patient was treated for: 1-Left L5 radiculopathy with associated foot drop from a L5-S1 disc protrusion eccentric left side with associated facet hypertrophy Patient seen by neurosurgery on September 19, 2018, however declined any surgical intervention Continue with PT, pain management accordingly 2-Hypertensive urgency-resolved Treated with Procardia XL 90 mg daily. Treated with with lisinopril 20 mg daily, however secondary to worsening renal function will discontinue weight and switch to Lopressor 2D echo with EF 50-55% Vasotec as needed Obesity hemoglobin A1c pending, LDL 95 Discussed about total lifestyle change modifications including weight management - Time Spent with Patient Total time spent providing and/or coordinating discharge services: Less than 30 minutes - Quality: VTE Deep Vein Thrombosis/Pulmonary Embolism Present on Admission: No Exam Vital signs: Vital Signs 09/20/18 11:00 09/20/18 11:58 09/20/18 12:00 Temperature 98 F Pulse Rate 82 82 80 Respiratory Rate 17 Blood Pressure 199/109 H Pulse Oximetry 96 09/20/18 13:00 09/20/18 14:00 09/20/18 15:00 Temperature Pulse Rate 62 53 L 59 L Respiratory Rate Blood Pressure 157/88 H Pulse Oximetry 09/20/18 16:00 09/20/18 17:00 09/20/18 17:40 Temperature 98.1 F Pulse Rate 72 58 L 57 L Respiratory Rate 18 Blood Pressure 157/92 H Pulse Oximetry 96 09/20/18 20:00 09/20/18 21:00 09/20/18 22:00 Temperature 97.9 F Pulse Rate 54 L 46 L 46 L Respiratory Rate 20 Blood Pressure 151/82 H Pulse Oximetry 99 09/20/18 22:40 09/20/18 23:00 09/21/18 00:00 Temperature 97.4 F L Pulse Rate 47 L 44 L Respiratory Rate 20 Blood Pressure 198/104 H 137/78 Pulse Oximetry 98 09/21/18 01:00 09/21/18 02:00 09/21/18 03:00 Temperature Pulse Rate 42 L 42 L 42 L Respiratory Rate Blood Pressure Pulse Oximetry 09/21/18 04:00 09/21/18 04:45 09/21/18 05:00 Temperature 98.4 F Pulse Rate 42 L 56 L 50 L Respiratory Rate 20 20 Blood Pressure 163/92 H Pulse Oximetry 95 09/21/18 05:46 09/21/18 05:54 09/21/18 09:11 Temperature Pulse Rate 85 57 L Respiratory Rate 17 Blood Pressure 127/80 159/89 H Pulse Oximetry 99 Intake & Output 09/20/18 09/21/18 09/21/18 18:59 06:59 18:59 Intake Total 720 / 720 440 / 440 Output Total 400 / 400 800 / 800 Balance 320 / 320 -360 / -360 Weight 138 kg Intake: Oral 720 / 720 440 / 440 Output: Urine 400 / 400 800 / 800 Other: # Voids 2 Date of Last Bowel Movement 09/19/18 09/19/18 Narrative: GENERAL: Well-nourished well-developed obese female no acute distress SKIN: Warm and dry. HEAD: Atraumatic. Normocephalic. EYES: Pupils equal and round. No scleral icterus. No injection or drainage. ENT: No nasal bleeding or discharge. Mucous membranes pink and moist. NECK: Trachea midline. No JVD. CARDIOVASCULAR: Regular rate and rhythm. RESPIRATORY: No accessory muscle use. Clear to auscultation. Breath sounds equal bilaterally. GASTROINTESTINAL: Abdomen soft, non-tender, nondistended. Hepatic and splenic margins not palpable. Normoactive bowel sounds MUSCULOSKELETAL: Extremities without clubbing, cyanosis, or edema. No obvious deformities. NEUROLOGICAL: Awake and alert to person place time and situation. No obvious cranial nerve deficits. Motor grossly within normal limits. mild Difficulty with complete dorsiflexion of the left foot and ankle, motor strength slightly weak of the left lower extremities compared to the right lower extremities. Normal speech. PSYCHIATRIC: Appropriate mood and affect; insight and judgment normal. Results Procedures completed during hospitalization: None Labs on day of discharge: Labs from last 24 hours 09/21/18 09/21/18 08:35 08:35 Sodium 137 Potassium 3.1 L Chloride 100 Carbon Dioxide 31.5 Anion Gap 6 BUN 52 H Creatinine 1.69 H Estimated GFR 37 L Random Glucose 93 Hemoglobin A1c Pending Calcium 9.0 D Triglycerides 110 Cholesterol 168 LDL Cholesterol, Calc 95 HDL Cholesterol 51.5 Cholesterol/HDL Ratio 3.26 - Impressions ITS Impressions Chest X-Ray 09/19/18 06:41 CONCLUSION: Negative examination. Lumbar Spine CT 09/19/18 06:41 CONCLUSION: 1. No acute abnormality. 2. Degenerative changes particularly at L3-L4 and L4-L5 with central canal stenosis and neural foraminal narrowing as detailed above. Head CT 09/19/18 06:45 CONCLUSION: 1. No acute intracranial abnormality. 2. Chronic small vessel ischemic change. 3. Chronic lacunar infarction involving left thalamus. . Thoracic Aorta CT 09/19/18 07:05 CONCLUSION: 1. No acute abnormality. In particular, no aortic aneurysm or dissection. Lumbar Spine MRI 09/19/18 07:06 CONCLUSION: 1. Degenerative changes as detailed above. Right L4 and left L5 neural foraminal impingement as detailed above. Discharge Plan - Discharge Disposition Patient Disposition: Discharge Home - Discharge Condition Condition: Stable - Discharge Order Discharge Orders: Discharge Order (Routine); Ordered 09/21/18 Ordered By: Yuval Colón - Physicians Team Primary Care Provider: Primary Care Physici,No Attending Provider: Yuval Colón Other Providers: Xiang Dallas MD
[2018-09-21 12:15] LABS: Hemoglobin A1c 5.8 % (4.3-6.0)
[2018-09-21 12:25] VITALS: BP 157/88; TEMP 98.6
[2018-09-21] MEDS: Enoxaparin Inj 40 MG/0.4 ML Syringe SQ SCH (12:25)
[2018-09-21 14:29] VITALS: PULSE 78
== END 2018-09-21 18:06 | disposition home or self-care (01) ==
LOC: NEPE 06:05 → NEDA 11:06 → HCIS 15:41
PROVIDERS: ADMIT Hospitalist; ATTEND Hospitalist